=== PATIENT | female | born 1980 | race American Indian/Alaskan Native ===

== ENCOUNTER 2021-09-10 10:55 | Emergency (ER) | payer SELFPAY ==
--- NOTE | 2021-09-10 12:41 | Consultation ---
History of Present Illness - Reason for Consult Consult date: 09/10/21 Reason for consult: psychosis - History of Present Psychiatric Illness The patient was seen today. She was in the seclusion room. She is acutely psychotic. She is talking out loud to herself. She appears stressed and is talking and singing loudly. She does not answer any questions. She just continues to talk to people who are not there. PAST PSYCHIATRIC HISTORY Unable to assess PAST MEDICAL HISTORY: None reported Family Psychiatric History: None reported or documented SOCIAL HISTORY Unable to assess REVIEW OF SYSTEMS Unable to assess MENTAL STATUS EXAMINATION Unable to assess Assessment and Plan Delusional Disorder Treatment Plan 1013 Olanzapine 5mg po daily Vistaril 50mg po BID Trazodone 50mg po qhs Sitter: defer to primary Medical: Per primary Disposition: Recommend acute psychiatric inpatient treatment Will follow. Thanks. Case staffed with Dr. Combs Medications and Allergies Allergies Allergy/AdvReac Type Severity Reaction Status Date / Time No Known Allergies Allergy Verified 09/10/21 11:01 Mental Status Exam - Vital signs Last Vital Signs Temp 99.1 F 09/10/21 10:58 Pulse 94 H 09/10/21 10:58 Resp 16 09/10/21 10:58 BP 127/74 09/10/21 10:58 Pulse Ox 97 09/10/21 11:57 Results All other labs normal.
--- NOTE | 2021-09-10 12:42 | Emergency Department Report ---
ED Psych HPI - General Chief Complaint: Psych Stated Complaint: PSYCH EVAL Time Seen by Provider: 09/10/21 11:30 Source: family, RN/MD, EMS Mode of arrival: Stretcher - History of Present Illness Initial Comments: Patient is a 41-year-old female with history of ADHD and possibly PTSD. Patient presents to the emergency department with EMS. Per EMS they state that the patient's mother states she was running around [email or web address]. Police was called and they noted that the patient was running through the aisles at the grocery store. Patient's family note that she has been aggressive and had behavior like this for the past 7 years since being released from the . They state for the past 1 days she has been less responsive. Her father notes that she has been shopping online and she is field for bedrooms with the things that she has purchased. About 2 weeks ago they noticed that she started giving away things. The father states she also speaks about demons and he thinks that she is suicidal and wants to . - Related Data Allergies Allergy/AdvReac Type Severity Reaction Status Date / Time No Known Allergies Allergy Verified 09/10/21 12:55 ED Review of Systems ROS: Stated complaint: PSYCH EVAL Other details as noted in HPI Comment: Unobtainable due to pts medical conditions ED Past Medical Hx - Past Medical History Previous Medical History?: Yes Additional medical history: ADHD per father, unable to get pt to respond to questions ED Physical Exam - General Limitations: Altered Mental Status General appearance: other (does not respond to verbal stimuli, sitting upright, appears in no acute distress) - Head Head exam: Present: atraumatic, normocephalic - Eye Eye exam: Present: other (Patient's eyes are deviated up the the L purposefully) - ENT ENT exam: Present: mucous membranes moist - Neck Neck exam: Present: normal inspection - Respiratory Respiratory exam: Present: normal lung sounds bilaterally. Absent: respiratory distress - Cardiovascular Cardiovascular Exam: Present: regular rate, normal rhythm. Absent: systolic murmur, diastolic murmur, rubs, gallop - GI/Abdominal GI/Abdominal exam: Present: soft. Absent: distended, tenderness - Rectal Rectal exam: Present: deferred - Extremities Exam Extremities exam: Present: normal inspection - Back Exam Back exam: Present: normal inspection - Neurological Exam Neurological exam: Present: other (As above, sitting upright, moving extremities but does not respond to stimuli) - Expanded Psychiatric Exam Expanded Focused psych exam: Present: catatonic - Skin Skin exam: Present: warm, dry, intact, normal color. Absent: rash ED Course Vital Signs 09/10/21 09/10/21 09/10/21 10:58 11:57 20:07 Temperature 99.1 F 97.8 F Pulse Rate 94 H 92 H Respiratory 16 18 Rate Blood Pressure 127/74 98/53 [Left] O2 Sat by Pulse 99 97 97 Oximetry - Reevaluation(s) Reevaluation #1: 09/10/21 18:57 Patient is medically cleared ED Medical Decision Making - Lab Data Result diagrams: 09/10/21 18:07 09/10/21 12:50 - Medical Decision Making Patient is a 41-year-old female presents to the emergency department with concern for psychiatric illness. Patient apparently has had baseline aggressive behavior but over the past 1 day has been less responsive. Today had an episod e of running through all of the grocery store possibly having delusions. Her father thinks that she is suicidal. Patient has never presented here to our emergency department. Given this a CT head is ordered as well as basic labs. If normal patient will be medically clear for psychiatric evaluation. Patient is unable to care for self a 1013 signed. Critical care attestation.: If time is entered above; I have spent that time in minutes in the direct care of this critically ill patient, excluding procedure time. ED Disposition Clinical Impression: Psychosis Disposition: [facility] Is pt being admited?: No Does the pt Need Aspirin: No Condition: Stable Referrals: PRIMARY CARE, [Primary Care Provider] - 3-5 Days
[2021-09-10 13:21] LABS: BUN/Creatinine Ratio 13; Blood Urea Nitrogen 13 mg/dL (7-17); Calcium 9.4 mg/dL (8.4-10.2); Hemolysis Index 224
--- NOTE | 2021-09-10 14:25 | Cat Scan Report ---
CT HEAD WITHOUT CONTRAST INDICATION / CLINICAL INFORMATION: altered mental status. TECHNIQUE: All CT scans at this location are performed using CT dose reduction for ALARA by means of automated exposure control. COMPARISON: None available. FINDINGS: HEMORRHAGE: None. EXTRA-AXIAL SPACES: Normal in size and morphology for the patient's age. VENTRICULAR SYSTEM: Normal in size and morphology for the patient's age. CEREBRAL PARENCHYMA: No significant abnormality. No acute territorial infarct. Musa-white matter diff erentiation is preserved. MIDLINE SHIFT / HERNIATION: None. CEREBELLUM / BRAINSTEM: No significant abnormality. ORBITS: Normal as visualized. SOFT TISSUES: No significant abnormality. SKULL: No significant abnormality. PARANASAL SINUSES / MASTOID AIR CELLS: Mild mucosal thickening in the maxillary sinuses. The remainin g paranasal sinuses and mastoid air cells are clear. ADDITIONAL FINDINGS: None. IMPRESSION: 1. No CT evidence of acute abnormality. Signer Name: Fermin Lanier MD Signed: 09/10/2021 2:21 PM Workstation Name: [id number]
[2021-09-10 18:21] LABS: Basophils # (Auto) 0.1 K/mm3 (0.0-0.1); Eosinophils # (Auto) 0.1 K/mm3 (0.0-0.4); Eosinophils % (Auto) 1.6 % (0.0-4.3); Hematocrit 36.3 % (30.3-42.9); Hemoglobin 11.8 gm/dl (10.1-14.3); Lymphocytes # (Auto) 1.4 K/mm3 (1.2-5.4); Lymphocytes % (Auto) 19.8 % (13.4-35.0); Mean Corpuscular HGB Conc 33 % (30-34); Mean Corpuscular Volume 86 fl (79-97); Monocytes # (Auto) 0.7 K/mm3 (0.0-0.8); Monocytes % (Auto) 9.9 % (0.0-7.3); Platelet Count 227 K/mm3 (140-440); Red Cell Distribution Width 14.4 % (13.2-15.2)
[2021-09-10] MEDS ORDERED: MAGNESIUM HYDROXIDE (MOM) ORAL LIQD UDC PO PRN (18:56)
[2021-09-10] MEDS ORDERED: ALUM-MAG HYDROXIDE-SIMETHICONE 200-200-20MG/5ML ORAL LIQD 30 ML PO PRN (18:56)
[2021-09-10] MEDS ORDERED: ACETAMINOPHEN 325 MG TAB PO PRN (18:56)
[2021-09-10 20:23] LABS: Bilirubin,Urine NEG (Negative); Blood,Urine NEG (Negative); Color,Urine Yellow (Yellow); Mucus,Urine 3+ /HPF; Urobilinogen,Urine < 2.0 mg/dL (<2.0)
[2021-09-10 20:26] LABS: Benzodiazepines Screen,Urine Negative; Cannabinoid Screen,Urine Negative; Cocaine Screen,Urine Negative; Methadone Screen,Urine Negative; Opiate Screen,Urine Negative
[2021-09-10 20:43] LABS: Amphetamine Screen,Urine Positive
[2021-09-10] MEDS: DOXEPIN 10 MG CAP PO SCH (22:00)
--- NOTE | 2021-09-11 08:06 | Progress Note ---
Subjective - Reason for Consult Consult date: 09/11/21 Reason for consult: hallucinations - Chief Complaint Chief complaint: The patient was seen today. She has poor insight. She is slow to respond, but she is more talkative today. She says she was "seeing beings in the store." She endorses seeing demons today and is looking around. The patient says "it's not mental, it's spiritual." The patient says she sees a psychiatrist for medical purposes. Then she says "well, I'm accused of having psychosis." She says she takes Adderall for psychosis. I inform the patient that Adderall is not for psychosis, she says "it's not?" REVIEW OF SYSTEMS Constitutional: Negative for weight loss ENT: Negative for stridor Respiratory: Negative for cough or hemoptysis All other systems reviewed and are negative MENTAL STATUS EXAMINATION General Appearance and Behavior: Age appropriate, good hygiene, wearing appropriate clothes, good eye contact, calm, cooperative Cooperation: Participating/engaged, but Guarded Psychomotor Behavior: Psychomotor normal Mood: depressed Affect and affective range: congruent with stated mood Thought Process: goal directed Thought Content: None Speech: Normal tone and pace Suicidal Ideation: yes Homicidal Ideation: Denies Hallucinations: Denies Delusions: None elicited Impulse Control: Normal Insight and Judgment: Limited insight and judgment Memory: Limited Attention: divided Orientation: Alert, oriented Assessment and Plan Schizophrenia Treatment Plan 1013 Increase Olanzapine 10mg po daily Sitter: per primary Medical: defer to primary Disposition: Recommend acute psychiatric inpatient treatment. Will follow. Thanks Case staffed with Dr. Combs Mental Status Exam - Vital signs Last Vital Signs Temp 97.6 F 09/11/21 02:08 Pulse 88 09/11/21 02:08 Resp 16 09/11/21 02:08 BP 96/53 09/11/21 02:08 Pulse Ox 99 09/11/21 02:08
--- NOTE | 2021-09-11 12:22 | Event Note ---
Date: 09/11/21 The patient continues to receive inpatient psychiatric treatment. Apparently she is having insight problems. Her vitals have remained stable and there have been no significant occurrences overnight. We will continue to observe medically awaiting for psychiatric disposition.
[2021-09-11] MEDS: DOXEPIN 10 MG CAP PO SCH (22:20)
[2021-09-12 09:07] VITALS: BP 132/96
== END 2021-09-12 13:43 ==
LOC: EEVIPCON 10:55 → ED 10:55
DX: F29 Unspecified psychosis not due to a substance or known physiological condition (principal); Z20.822 Contact with and (suspected) exposure to COVID-19; Z79.899 Other long term (current) drug therapy
CPT/HCPCS: 36415; 70450; 80048; 80307; 81001; 84703; 85025; 99285; Q0177; U0003; 80320; G0480